=== PATIENT | female | born 1945 | race Caucasian/White ===

== ENCOUNTER 2017-07-04 16:13 | Emergency (ER) | payer MEDICARE, BC ==
[2017-07-04 17:37] VITALS: BP 151/38
--- NOTE | 2017-07-04 18:30 | UC ---
Throat Pain/Nasal Afshin HPI - HPI Summary HPI Summary: pt c/o cold symptoms since last week; however, she now has a sore throat. No cp , sob. - History of Current Complaint Chief Complaint: UCRespiratory Stated Complaint: SORE THROAT Time Seen by Provider: 07/04/17 18:22 Hx Obtained From: Patient ?: No Onset/Duration: Gradual Onset Severity: Moderate Pain Intensity: 6 Associated Signs & Symptoms: Positive: Other - cough, nasal congestion and sides or neck feel stiff. - Allergies/Home Medications Allergies/Adverse Reactions: Allergies Allergy/AdvReac Type Severity Reaction Status Date / Time amoxicillin Allergy Hives Verified 07/04/17 17:37 bupropion [From Wellbutrin] Allergy Hives Verified 07/04/17 17:40 buspirone [From BuSpar] Allergy Fatigue Verified 07/04/17 17:37 Cephalosporins Allergy See Comment Verified 07/04/17 17:37 clavulanic acid Allergy Hives Verified 07/04/17 17:37 [From Augmentin] doxepin Allergy Fatigue Verified 07/04/17 17:40 duloxetine [From Cymbalta] Allergy Fatigue Verified 07/04/17 17:40 hydrocodone Allergy Rash Verified 07/04/17 17:40 levofloxacin [From Levaquin] Allergy See Comment Verified 07/04/17 17:40 melatonin Allergy Fatigue Verified 07/04/17 17:40 MS Penicillins [PCN] Allergy Hives Verified 07/04/17 17:40 nitrofurantoin Allergy GI Upset Verified 07/04/17 17:40 [From Macrobid] oxycodone Allergy Rash Verified 07/04/17 17:40 Home Medications: Home Medications Atorvastatin* [Lipitor*] 20 mg PO 1700 07/04/17 [History Confirmed 07/04/17] Escitalopram Oxalate [Lexapro 20 mg] 20 mg PO DAILY 07/04/17 [History Confirmed 07/04/17] Verapamil HCl 40 mg PO 07/04/17 [History] PMH/Surg Hx/FS Hx/Imm Hx Endocrine History: Dyslipidemia Neurological History: Migraine Psychological History: Anxiety, Depression - Surgical History Surgical History: Yes Surgery Procedure, Year, and Place: t&a, d&c x3, hysterectomy, oopherectomy, choley, appy - Social History Occupation: Employed Part-time Alcohol Use: None Substance Use Type: None Smoking Status (MU): Never Smoked Tobacco Review of Systems Constitutional: Chills Skin: Negative Eyes: Negative ENT: Sore Throat, Sinus Congestion Respiratory: Cough Cardiovascular: Negative Gastrointestinal: Negative Genitourinary: Negative Motor: Negative Neurovascular: Negative Musculoskeletal: Myalgia Neurological: Headache Psychological: Negative Is Patient Immunocompromised?: No All Other Systems Reviewed And Are Negative: Yes Physical Exam Triage Information Reviewed: Yes Appearance: Well-Appearing Vital Signs: Initial Vital Signs Temp 98.8 F 07/04/17 17:26 Pulse 75 07/04/17 17:26 Resp 18 07/04/17 17:26 BP 151/38 07/04/17 17: Pulse Ox 100 07/04/17 17:26 Vital Signs Reviewed: Yes Eyes: Positive: Conjunctiva Clear ENT: Positive: Pharyngeal erythema, TMs normal, Uvula midline. Negative: Nasal congestion, Nasal drainage, Tonsillar swelling, Tonsillar exudate Neck: Positive: Supple, Nontender, No Lymphadenopathy. Negative: Nuchal Rigidity Respiratory: Positive: Lungs clear, Normal breath sounds, No respiratory distress Cardiovascular: Positive: RRR, No Murmur Abdomen Description: Positive: Nontender, No Organomegaly, Soft Bowel Sounds: Positive: Present Neurological: Positive: Alert Psychological: Positive: Age Appropriate Behavior Skin Exam: Normal Diagnostics - Laboratory Diagnostic Studies Completed/Ordered: + strep Throat Pain/Nasal Course/Dx - Course Course Of Treatment: + rapid strep, will tx with zithromax. pt has pcn/ cephalosporin allergies. she has taken zithromax on her current medications in past with no reactions/side effects. pt BP elevated during this visit. pt notes that this is not new for her. at times it is better. she will d/w her pcp on f/ u within the next week for a recheck. - Differential Dx/Diagnosis Provider Diagnoses: strep throat Discharge - Discharge Plan Condition: Stable Disposition: HOME Prescriptions: Azithromycin TAB* [Zithromax TAB (Z-JULIA) 250 mg #6 tabs] 2 tab PO .TODAY, THEN 1 DAILY #1 julia Patient Education Materials: Strep Throat (DC) Referrals: Latia Davis MD [Primary Care Provider] -
[2017-07-04] MEDS ORDERED: Azithromycin TAB* 250 MG PO ONE (18:34)
== END 2017-07-04 18:48 | disposition home or self-care (01) ==
LOC: UCCORT 16:13
DX: J02.0 Streptococcal pharyngitis (principal); E78.5 Hyperlipidemia, unspecified; F41.8 Other specified anxiety disorders
CPT/HCPCS: 87651; 99212; A9270-GY; G0463

== ENCOUNTER 2017-10-07 12:47 | Emergency (ER) | payer MEDICARE, BC ==
[2017-10-07 13:11] VITALS: BP 112/72
--- NOTE | 2017-10-07 13:36 | UC ---
Headache HPI - HPI Summary HPI Summary: P tc/o onset of migraine 3-4 days ago. Pt then reports that she took her B/P at pharmacy and it has been elevated over the last 3 days. Pt has history of migraines and used her verapamil last night with no improvement. Pt denies unilateral weakness, difficulty swallowing, vision changes, facial droop or worsening DAHL. - History Of Current Complaint Chief Complaint: UCHeadache Stated Complaint: HEAD ACHE,HIGH BLOOD PRESSURE Time Seen by Provider: 10/07/17 13:12 Hx Obtained From: Patient ?: No Onset/Duration: Gradual Onset, Lasting Days, Still Present Onset Of Symptoms: Gradual, Still Present Initially Headache Was: Moderate Currently Pain Is: Moderate Pain Intensity: 4 Timing: Constant Character: Dull, Pressure, Migraine Location of Headache: Frontal Aggravating Factor(s): Nothing Allevating Factor(s): Nothing Associated Signs And Symptoms: Positive: Dizziness, Sinus Pressure - Risk Factors SAH Risk Factors: Negative Meningitis Risk Factors: Negative SDH Risk Factors: Negative Temporal Arteritis Risk Factors: Female - Allergies/Home Medications Allergies/Adverse Reactions: Allergies Allergy/AdvReac Type Severity Reaction Status Date / Time amoxicillin Allergy Hives Verified 10/07/17 13:07 bupropion [From Wellbutrin] Allergy Hives Verified 10/07/17 13:07 buspirone [From BuSpar] Allergy Fatigue Verified 10/07/17 13:07 Cephalosporins Allergy See Comment Verified 10/07/17 13:07 clavulanic acid Allergy Hives Verified 10/07/17 13:07 [From Augmentin] doxepin Allergy Fatigue Verified 10/07/17 13:07 duloxetine [From Cymbalta] Allergy Fatigue Verified 10/07/17 13:07 hydrocodone Allergy Rash Verified 10/07/17 13:07 levofloxacin [From Levaquin] Allergy See Comment Verified 10/07/17 13:07 melatonin Allergy Fatigue Verified 10/07/17 13:07 MS Penicillins [PCN] Allergy Hives Verified 10/07/17 13:07 nitrofurantoin Allergy GI Upset Verified 10/07/17 13:07 [From Macrobid] oxycodone Allergy Rash Verified 10/07/17 13:07 Home Medications: Home Medications Omeprazole CAP* [Prilosec CAP* 20 MG] 20 mg PO DAILY 10/07/17 [History Confirmed 10/07/17] PMH/Surg Hx/FS Hx/Imm Hx Previously Healthy: Yes - Surgical History Surgical History: Yes Surgery Procedure, Year, and Place: t&a, d&c x3, hysterectomy, oopherectomy, choley, appy - Family History Known Family History: Positive: Cardiac Disease - Social History Occupation: Retired Lives: With Family Alcohol Use: None Substance Use Type: None Smoking Status (MU): Never Smoked Tobacco Have You Smoked in the Last Year: No Review of Systems Constitutional: Negative Skin: Negative Eyes: Negative ENT: Sinus Pain/Tenderness Respiratory: Negative Cardiovascular: Negative Gastrointestinal: Negative Genitourinary: Negative Motor: Negative Neurovascular: Negative Musculoskeletal: Negative Neurological: Headache Psychological: Negative Is Patient Immunocompromised?: No All Other Systems Reviewed And Are Negative: Yes Physical Exam Triage Information Reviewed: Yes Appearance: Well-Appearing Vital Signs: Initial Vital Signs Temp 98.2 F 10/07/17 13:05 Pulse 62 10/07/17 13:05 Resp 15 10/07/17 13:05 BP 112/72 10/07/17 13:05 Pulse Ox 99 10/07/17 13:05 Vital Signs Reviewed: Yes Eye Exam: Normal Eyes: Positive: Other: - PERRLA ENT Exam: Normal Dental Exam: Normal Neck exam: Normal Respiratory Exam: Normal Cardiovascular Exam: Normal Musculoskeletal Exam: Normal Neurological Exam: Normal Psychological Exam: Normal Skin Exam: Normal Headache Course/Dx - Differential Dx/Diagnosis Differential Diagnosis/HQI/PQRI: Migraine, Sinus Headache, Tension Headache Provider Diagnoses: Migraine DAHL Discharge - Sign-Out/Discharge Documenting (check all that apply): Discharge/Admit/Transfer - Discharge Plan Condition: Stable Disposition: HOME Patient Education Materials: Migraine Headache (ED) Referrals: Latia Davis MD [Primary Care Provider] - If Needed Additional Instructions: Please follow up with your PCP as needed. - Billing Disposition and Condition Condition: STABLE Disposition: HOME
== END 2017-10-07 13:37 | disposition home or self-care (01) ==
LOC: UCCORT 12:47
DX: G43.909 Migraine, unspecified, not intractable, without status migrainosus (principal); Z88.6 Allergy status to analgesic agent; Z88.0 Allergy status to penicillin; Z88.8 Allergy status to other drugs, medicaments and biological substances
CPT/HCPCS: 99211; G0463

== ENCOUNTER 2018-01-08 12:32 | Emergency (ER) | payer MEDICARE, BC ==
[2018-01-08 12:51] VITALS: BP 121/51
--- NOTE | 2018-01-08 13:14 | UC ---
Skin Complaint HPI - HPI Summary HPI Summary: The patient is a 72-year-old female with a 2-3 day history of pruritic upper back rash. She used a new detergent recently. She denies any pain. - History of Current Complaint Chief Complaint: UCSkin Time Seen by Provider: 01/08/18 13:01 Stated Complaint: SKIN CONCERN (BACK) Hx Obtained From: Patient Onset/Duration: Gradual Onset Skin Exposure Onset/Duration: Days Ago Timing: Constant Onset Severity: Mild Current Severity: Mild Pain Intensity: 0 Pain Scale Used: 0-10 Numeric Character: Pruritus, Redness Aggravating Factor(s): OTC Meds Alleviating Factor(s): Nothing Associated Signs & Symptoms: Positive: Rash - Allergy/Home Medications Allergies/Adverse Reactions: Allergies Allergy/AdvReac Type Severity Reaction Status Date / Time amoxicillin Allergy Hives Verified 10/07/17 13:07 bupropion [From Wellbutrin] Allergy Hives Verified 10/07/17 13:07 buspirone [From BuSpar] Allergy Fatigue Verified 10/07/17 13:07 Cephalosporins Allergy See Comment Verified 10/07/17 13:07 clavulanic acid Allergy Hives Verified 10/07/17 13:07 [From Augmentin] doxepin Allergy Fatigue Verified 10/07/17 13:07 duloxetine [From Cymbalta] Allergy Fatigue Verified 10/07/17 13:07 hydrocodone Allergy Rash Verified 10/07/17 13:07 levofloxacin [From Levaquin] Allergy See Comment Verified 10/07/17 13:07 melatonin Allergy Fatigue Verified 10/07/17 13:07 nitrofurantoin Allergy GI Upset Verified 10/07/17 13:07 [From Macrobid] oxycodone Allergy Rash Verified 10/07/17 13:07 Penicillins Allergy Hives Verified 01/08/18 12:50 Home Medications: Home Medications [place]-3 Fatty Acids/Fish Oil [[place] 3 1,000 mg Softgel] 1 each PO DAILY [History Confirmed 01/08/18] diphenhydrAMINE HCl [Benadryl Allergy] 25 mg PO DAILY 01/08/18 [History Confirmed 01/08/18] hydrOXYzine HCl [Hydroxyzine HCl] 25 mg PO DAILY PRN 01/08/18 [History Confirmed 01/08/18] Review of Systems Constitutional: Negative Skin: Rash Eyes: Negative ENT: Negative Respiratory: Negative Cardiovascular: Negative Gastrointestinal: Negative Genitourinary: Negative Motor: Negative Neurovascular: Negative Musculoskeletal: Negative Neurological: Negative Psychological: Negative Is Patient Immunocompromised?: No All Other Systems Reviewed And Are Negative: Yes PMH/Surg Hx/FS Hx/Imm Hx Previously Healthy: Yes Endocrine History: Dyslipidemia Cardiovascular History: Hypertension - Surgical History Surgical History: Yes Surgery Procedure, Year, and Place: t&a, d&c x3, hysterectomy, oopherectomy, choley, appy - Family History Known Family History: Positive: Cardiac Disease - Social History Alcohol Use: None Substance Use Type: None Smoking Status (MU): Never Smoked Tobacco Have You Smoked in the Last Year: No Physical Exam Triage Information Reviewed: Yes Appearance: Well-Appearing, No Pain Distress, Well-Nourished Vital Signs: Initial Vital Signs Temp 98.0 F 01/08/18 12:43 Pulse 52 01/08/18 12:43 Resp 14 01/08/18 12:43 BP 121/51 01/08/18 12:43 Pulse Ox 99 01/08/18 12:43 Vital Signs Reviewed: Yes Eyes: Positive: Conjunctiva Clear ENT: Negative: Hearing grossly normal, Nasal congestion, Nasal drainage, Trismus , Muffled voice, Dental tenderness Neck: Positive: Supple, Nontender, No Lymphadenopathy Respiratory: Positive: Lungs clear, Normal breath sounds, No respiratory distress, No accessory muscle use Cardiovascular: Positive: RRR, No Murmur Musculoskeletal: Positive: ROM Intact, No Edema Neurological: Positive: Alert Psychological Exam: Normal Skin Exam: Other - fine red macular/papular rash upper back Course/Dx - Diagnoses Provider Diagnoses: acute pruritic rash of uncertain cause Discharge - Sign-Out/Discharge Documenting (check all that apply): Patient Departure - Discharge Plan Condition: Stable Disposition: HOME Prescriptions: Triamcinolone 0.5% CREAM(NF) [Triamcinolone 0.5% CREAM*] 1 applic TOPICAL TID # 1 tube Patient Education Materials: Acute Rash (ED) Referrals: Latia Davis MD [Primary Care Provider] - If Needed Additional Instructions: sarna anti itch lotion - Billing Disposition and Condition Condition: STABLE Disposition: Home
== END 2018-01-08 13:19 | disposition home or self-care (01) ==
LOC: UCCORT 12:32
DX: L29.9 Pruritus, unspecified (principal); Z88.0 Allergy status to penicillin; Z88.8 Allergy status to other drugs, medicaments and biological substances; I10 Essential (primary) hypertension
CPT/HCPCS: 99212; G0463

== ENCOUNTER 2018-05-13 15:31 | Emergency (ER) | payer MEDICARE, BC ==
[2018-05-13 15:54] VITALS: BP 144/59
--- NOTE | 2018-05-13 17:05 | UC ---
Headache HPI - HPI Summary HPI Summary: HX COMPLEX MIGRAINES AND SEEING DR TEJADA, NEUROLOGY IN [place]. OVER THE PAST 3 WEEKS, PT HAS HAD A MIGRAINE. DESCRIBES A FRONTAL THROBBING HEADACHE WHICH IS TYPICAL FOR HER. THE NEUROLOGIST TX'ED HER WITH A WEANING STEROID WHICH HELP UNTIL SHE REACHED THE LAST DAY. SHE F/U WITH HER PCP WHO TX FOR POSSIBLE SINUSITIS WHICH DID NOT HELP. SHE HAS BEEN TAKING A SINGLE DOSE OF ZOMIG DAILY WHICH PROVIDES TRANSIENT RELIEF. SHE TOOK ONE SITE PROMOTION AGENT AND DAHL HAS IMPROVED BUT HAS NOT RESOLVED. SHE HAS NO LIGHT/NOISE SENSITIVITY, NO N/V, NO INJURY OR FEVER. THIS IS NOT AN ABRUPT OR WORST HEADACHE. LAST IMAGE WAS MRI IN SPRING 2017. IT WAS OK. - History Of Current Complaint Chief Complaint: UCHeadache Stated Complaint: MIGRAINE Time Seen by Provider: 05/13/18 16:58 Hx Obtained From: Patient Onset/Duration: Gradual Onset Pain Intensity: 6 Timing: Constant - Risk Factors Meningitis Risk Factors: Negative SDH Risk Factors: Negative - Allergies/Home Medications Allergies/Adverse Reactions: Allergies Allergy/AdvReac Type Severity Reaction Status Date / Time amoxicillin Allergy Hives Verified 05/13/18 15:56 bupropion [From Wellbutrin] Allergy Hives Verified 05/13/18 15:56 buspirone [From BuSpar] Allergy Fatigue Verified 05/13/18 15:56 Cephalosporins Allergy See Comment Verified 05/13/18 15:56 clavulanic acid Allergy Hives Verified 05/13/18 15:56 [From Augmentin] hydrocodone Allergy Rash Verified 05/13/18 15:56 levofloxacin [From Levaquin] Allergy See Comment Verified 05/13/18 15:56 oxycodone Allergy Rash Verified 05/13/18 15:56 Penicillins Allergy Hives Verified 05/13/18 15:56 doxepin AdvReac Fatigue Verified 05/13/18 15:56 duloxetine [From Cymbalta] AdvReac Fatigue Verified 05/13/18 15:56 melatonin AdvReac Fatigue Verified 05/13/18 15:56 nitrofurantoin AdvReac GI Upset Verified 05/13/18 15:56 [From Macrobid] Home Medications: Home Medications DOXYcycline CAP(*) [DOXYcycline 100MG CAP(*)] 100 mg PO BID 05/13/18 [History Confirmed 05/13/18] Erenumab-Aooe [Aimovig Autoinjector] 70 mg SQ MONTHLY 05/13/18 [History Confirmed 05/13/18] Ibuprofen TAB* [Motrin TAB* 800 MG] 800 mg PO Q6H PRN 05/13/18 [History Confirmed 05/13/18] ZOLMitriptan [Zomig] 5 mg PO ONCE PRN 05/13/18 [History Confirmed 05/13/18] PMH/Surg Hx/FS Hx/Imm Hx Endocrine History: Dyslipidemia GI/ History: Gastroesophageal Reflux Neurological History: Migraine Psychological History: Anxiety, Depression - Surgical History Surgical History: Yes Surgery Procedure, Year, and Place: t&a, d&c x3, hysterectomy, oopherectomy, choley, appy - Family History Known Family History: Positive: Cardiac Disease - Social History Lives: With Family Alcohol Use: None Substance Use Type: None Smoking Status (MU): Never Smoked Tobacco Have You Smoked in the Last Year: No - Immunization History Vaccination Up to Date: Yes Review of Systems All Other Systems Reviewed And Are Negative: Yes Constitutional: Positive: Negative Skin: Positive: Negative Eyes: Positive: Negative ENT: Positive: Negative Respiratory: Positive: Negative Cardiovascular: Positive: Negative Gastrointestinal: Positive: Negative Genitourinary: Positive: Negative Motor: Positive: Negative Neurovascular: Positive: Negative Musculoskeletal: Positive: Negative Neurological: Positive: Headache Psychological: Positive: Negative Is Patient Immunocompromised?: No Physical Exam Triage Information Reviewed: Yes Appearance: Well-Appearing Vital Signs: Initial Vital Signs Temp 97.7 F 05/13/18 15:49 Pulse 65 05/13/18 15:49 Resp 16 05/13/18 15:49 BP 144/59 05/13/18 15:49 Pulse Ox 100 05/13/18 15:49 Vital Signs Reviewed: Yes Eyes: Positive: Conjunctiva Clear, Other: - S/P CATARACT SURGERY ENT: Positive: Pharynx normal, TMs normal. Negative: Nasal congestion, Nasal drainage Neck: Positive: Supple, Nontender, No Lymphadenopathy, Other: - NO CAROTID BRUITS Respiratory: Positive: Lungs clear, Normal breath sounds Cardiovascular: Positive: RRR, No Murmur Abdomen Description: Positive: Nontender, No Organomegaly, Soft Bowel Sounds: Positive: Present Musculoskeletal: Positive: ROM Intact Neurological: Positive: Other: - A&OX3, CN 2-12 GROSSLY INTACT. 5/5 STRENGHT/ SENSATION/2+REFLEXES INTACTX4. NEGATIVE RHOMBERG AND PRONATOR DRIFT. STEADY GAIT. NO TEMPORAL CORDS/TENDERNESS. Psychological: Positive: Age Appropriate Behavior Skin Exam: Normal Skin: Negative: Rashes Re-Evaluation - Re-Evaluation First Eval Re-Evaluation Time: 18:05 Change: Improved - PT NOTES FEELING BETTER. Second Eval Re-Evaluation Time: 18:25 Change: Improved - HEADACHE HAS RESOLVED Headache Course/Dx - Differential Dx/Diagnosis Differential Diagnosis/HQI/PQRI: CVA, Epidural Hematoma, Subdural Hematoma, Meningitis, Migraine, Subarachnoid Hemorrhage, Temporal Arteritis, Tension Headache Provider Diagnosis: Migraine Discharge - Sign-Out/Discharge Documenting (check all that apply): Patient Departure All imaging exams completed and their final reports reviewed: No Studies - Discharge Plan Condition: Stable Disposition: HOME Patient Education Materials: Migraine Headache (ED) Referrals: Latia Davis MD [Primary Care Provider] - Additional Instructions: FOLLOW UP DR TEJADA, YOUR NEUROLOGIST SOON POSSIBLE. - Billing Disposition and Condition Condition: STABLE Disposition: Home - Attestation Statements Provider Attestation: Per institutional requirements, I have reviewed the chart, however, I was not consulted specifically or made aware of this patient by the midlevel provider. I did not personally evaluate, interact with , or disposition this patient.
[2018-05-13] MEDS ORDERED: NS 0.9% 1000 ML* 1,000 ML IV ONE (17:15)
[2018-05-13] MEDS ORDERED: Metoclopramide IV* 5 MG/ML 2 ML VIAL IV SLOW PU ONE (17:16)
[2018-05-13] MEDS ORDERED: diPHENhydraMINE IV* 50 MG/ML 1 ml VIAL (BENADRYL) IV ONE (17:19)
[2018-05-13] MEDS ORDERED: methylPREDNISolone 125 MG* 2 ML VIAL IV ONE (17:20)
== END 2018-05-13 18:34 | disposition home or self-care (01) ==
LOC: UCCORT 15:31
DX: G43.909 Migraine, unspecified, not intractable, without status migrainosus (principal); Z88.0 Allergy status to penicillin; Z88.8 Allergy status to other drugs, medicaments and biological substances; Z88.1 Allergy status to other antibiotic agents; Z88.5 Allergy status to narcotic agent
CPT/HCPCS: 96360; 96374; 96375; 99212; G0463; J1200; J2765; J2930

== ENCOUNTER 2018-12-06 14:45 | Emergency (ER) | payer MEDICARE, BC ==
--- OUTSIDE RECORDS SUMMARY | 2018-12-06 14:55 | XMS REPORT | Continuity of Care Document ---
:1945 External Reference #:[id number] Author Name Leatha Adkins Care Team Providers Name Role Phone Latia Davis MD Care Team Information Adult High School Instructor Unavailable Latia Davis MD Primary Care Physician Unavailable Payers Date Identification Numbers Payment Provider Subscriber Policy Number: [id number] Medicare Lia Waggoner PayID: [id number] [address] [place] [address] Policy Number: [id number] [facility] Lia Waggoner PayID: [id number] [address] [address] [place] [address] Family History Date Family Member(s) Observation Comments : (age 71 Years) Father due to Heart Attack : (age 60 Years) Mother due to Uterine Cancer Social History Type Date Description Comments Sex Unknown Tobacco Use Start: Unknown Never Smoked Cigarettes ETOH Use Never used alcohol Recreational Drug Use Never Used Drugs Allergies, Adverse Reactions, Alerts Active Allergies Reaction Severity Comments Date Amoxicillin 2018 Augmentin 2018 Cephalosporins 2018 Doxepin 2018 Levaquin 2018 Oxycodone 2018 Penicillin 2018 Medications Active Medications SIG Qnty Indications Ordering Provider Date Singulair 1 by mouth every 30tabs Antoine Shirley, 10/20/2018 10mg Tablets day M.D. Fluticasone 2 sprays both 32gm Antoine Shirley, 2018 Propionate nostrils every M.D. 50mcg/Act day Suspension Lipitor 1 by mouth every Unknown 40mg Tablets day Omeprazole 1 by mouth every Unknown 20mg day Capsules DR Lexapro 1 by mouth every Unknown 20mg Tablets day Premarin 1 by mouth every Unknown 0.625mg day Tablets Verapamil HCL 1 by mouth every Unknown 40mg day Tablets Zomig Unknown 2.5mg Tablets History Medications Azithromycin 1 by mouth every 5tabs Antoine Shirley, 10/06/2018 - 500mg day M.D. 11/15/2018 Tablets Fluocinolone Acetonide 5 drops as needed 1units Antoine Shirley, 2018 - Ear Drops in the affected M.D. 10/05/2018 0.01% Oil ear twice a day. prn Vital Signs Date Vital Result Comment 11/16/2018 1:22pm Weight 113.00 lb Height 61 inches 5'1" BMI (Body Mass Index) 21.3 kg/m2 BP Systolic 118 mmHg BP Diastolic 75 mmHg Heart Rate 67 /min O2 % BldC Oximetry 96 % Body Temperature 97.0 F Pain Level 0 10/06/2018 1:12pm Weight 113.00 lb Height 61 inches 5'1" BMI (Body Mass Index) 21.3 kg/m2 BP Systolic 124 mmHg BP Diastolic 81 mmHg Heart Rate 66 /min O2 % BldC Oximetry 97 % Body Temperature 97.1 F Pain Level 0 2018 9:54am Weight 111.00 lb Height 61 inches 5'1" BMI (Body Mass Index) 21.0 kg/m2 BP Systolic 123 mmHg BP Diastolic 64 mmHg Heart Rate 71 /min O2 % BldC Oximetry 96 % Body Temperature 98.1 F Pain Level 0 Procedures Date Code Description Status 10/06/2018 15974 Cat Scan Maxillofacial W/O Contrast,computed tomography Completed 10/06/2018 68526 Cat Scan Maxillofacial W/O Contrast,computed tomography Completed 10/06/2018 90755 Fiberoptic Laryngoscopy,Diag. Completed 2018 29235 Laryngoscopy W/ Stroboscopy Completed Encounters Type Date Location Provider Dx Diagnosis Office Visit 10/06/2018 Main Office Antoine Shirley M.D. K21.9 Gastro- esophageal 1:00p reflux disease without esophagitis L21.9 Seborrheic dermatitis, unspecified J32.9 Chronic sinusitis, unspecified Office Visit 2018 10:00a Main Office Antoine Shirley K21.[place] [facility]- esophageal reflux Denita.DSteve disease without esophagitis R49.0 Dysphonia L21.9 Seborrheic dermatitis, unspecified J32.9 Chronic sinusitis, unspecified
--- OUTSIDE RECORDS SUMMARY | 2018-12-06 14:55 | XMS REPORT | Continuity of Care Document ---
:1945 External Reference #:[id number] Author Name Juan R Wang PA Address [address] [facility], [address] [place] [address] Care Team Providers Name Role Phone Latia Davis MD Care Team Information Sales And Marketing Manager Unavailable Latia Davis MD Primary Care Physician Unavailable Payers Date Identification Numbers Payment Provider Subscriber Policy Number: [id number] Medicare Lia Waggoner PayID: [id number] [address] [place] [address] Policy Number: [id number] David Waggoner PayID: [id number] [place] [address] Expires: 2016 Policy Number: [id number] [facility] Lia Waggoner Group Number: [id number] Expires: 2016 Policy Number: [id number] David Waggoner Group Number: [id number] Box Group Name: [place] [id number] PayID: [id number] Effective: 2005 Policy Number: [id number] [facility] Lia Waggoner Expires: 2016 Group Number: [id number] [facility] PayID: [id number] [place] [address] Problems Active Problems Provider Date Enthesopathy Onset: 05/15/2003 Cervical spondylosis without myelopathy Onset: 05/15/2003 Nocturia Saeed Valle M.D. Onset: 02/15/2017 Dribbling of urine Saeed Valle M.D. Onset: 02/15/2017 Increased frequency of urination Saeed Valle M.D. Onset: 04/26/2017 Family History Date Family Member(s) Observation Comments Father due to CO () Mother due to Uterine Cancer () Social History Type Date Description Comments Sex Unknown Lives With Occupation Retired Occupation Teacher Subsitute ETOH Use Rarely consumes alcohol Tobacco Use Start: Unknown Patient denies history of smoking Recreational Drug Use Denies Drug Use Smoking Status Reviewed: 11/11/18 Patient denies history of smoking Allergies, Adverse Reactions, Alerts Active Allergies Reaction Severity Comments Date Penicillins Hives Moderate 02/15/2017 Amoxicillin Hives 03/15/2017 Augmentin Hives 03/15/2017 Buspar Fatigue 03/15/2017 Cephalosporins 03/15/2017 Cymbalta makes pt tired 03/15/2017 Doxepin malaise 03/15/2017 Acetaminophen / Hydrocodone Rash 03/15/2017 Levaquin 03/15/2017 Macrobid 03/15/2017 Melatonin 03/15/2017 Oxycodone 03/15/2017 Wellbutrin 03/15/2017 Medications Active Medications SIG Qnty Indications Ordering Provider Date Escitalopram Oxalate Take One Tablet Unknown 20mg By Mouth Every Tablets Day Premarin Once a day Amber Mann MD 0.3mg Tablets Aimovig Pt takes once a Unknown 70mg/ml Solution month Auto-Inject Lipitor 1 by mouth Unknown 10mg Tablets every day Cyclobenzaprine HCL 1 tablet by Latia Davis MD 10mg mouth qday Tablets History Medications Botox Unknown Dose Saeed Valle, 04/26/2017 - 100Unit Solution M.D. 06/22/2018 Rec Trospium Chloride ER 1 tab by mouth 30caps R35.1 Saeed Valle, 2016 - every day every M.D. 04/06/2017 60mg Caps ER 24HR morning Myrbetriq 1 by mouth every 30tabs R35.1 Saeed Valle, 02/15/2017 - 50mg Tablets day M.D. 03/15/2017 ER 24HR Venlafaxine HCL 1 tab po qdLatia Patel MD - 25mg 04/20/2017 Tablets Verapamil HCL 1 tab po bid Unknown - 40mg Unknown Tablets Atorvastatin Calcium 1 tab po QdLatia Patel MD - 03/02/2018 40mg Tablets Premarin Every four days Amber Mann MD - 0.3mg Tablets 04/06/2017 Prednisone Unknown - 10mg Tablets 04/06/2017 Allergy oNCE A Day Unknown - 10mg Tablets 09/14/2018 [place] 3 1 by mouth every Unknown - 2000mg Capsules day 09/14/2018 Vital Signs Date Vital Result Comment 12/02/2018 12:56pm BP Systolic 155 mmHg BP Diastolic 78 mmHg Body Temperature 97.0 F Heart Rate 57 /min Respiratory Rate 16 /min Height 61 inches 5'1" [place] body weight in kilograms 48 kg O2 % BldC Oximetry 98 % Pain Level 0 11/03/2018 2:14pm BP Systolic 141 mmHg BP Diastolic 76 mmHg Body Temperature 98.8 F Heart Rate 62 /min Respiratory Rate 16 /min Height 61 inches 5'1" Weight 114.00 lb BMI (Body Mass Index) 21.5 kg/m2 BSA (Body Surface Area) 1.49 m2 [place] body weight in kilograms 48 kg O2 % BldC Oximetry 99 % Pain Level 0 10/19/2018 1:13pm BP Systolic Sitting Right Arm 122 mmHg BP Diastolic Sitting Right Arm 55 mmHg Body Temperature 97.9 F Heart Rate 57 /min Respiratory Rate 16 /min Height 61 inches 5'1" [place] body weight in kilograms 48 kg O2 % BldC Oximetry 96 % 10/05/2018 9:37am BP Systolic 119 mmHg BP Diastolic 74 mmHg Body Temperature 97.3 F Heart Rate 64 /min Respiratory Rate 15 /min Height 61 inches 5'1" [place] body weight in kilograms 48 kg O2 % BldC Oximetry 96 % Pain Level 0 09/14/2018 9:03am BP Systolic 100 mmHg BP Diastolic 49 mmHg Body Temperature 98.0 F Heart Rate 67 /min Respiratory Rate 16 /min Height 61 inches 5'1" Weight 115.00 lb BMI (Body Mass Index) 21.7 kg/m2 BSA (Body Surface Area) 1.49 m2 [place] body weight in kilograms 48 kg O2 % BldC Oximetry 96 % Pain Level 0 09/02/2018 1:05pm BP Systolic 149 mmHg BP Diastolic 84 mmHg Body Temperature 96.6 F Heart Rate 61 /min Respiratory Rate 17 /min Height 61 inches 5'1" Weight 115.00 lb BMI (Body Mass Index) 21.7 kg/m2 BSA (Body Surface Area) 1.49 m2 [place] body weight in kilograms 48 kg O2 % BldC Oximetry 98 % Pain Level 0 07/27/2018 9:24am BP Systolic 123 mmHg BP Diastolic 73 mmHg Body Temperature 96.2 F Heart Rate 61 /min Respiratory Rate 18 /min O2 % BldC Oximetry 98 % Pain Level 0 06/22/2018 9:37am BP Systolic 112 mmHg BP Diastolic 70 mmHg Body Temperature 97.7 F Heart Rate 73 /min Respiratory Rate 16 /min O2 % BldC Oximetry 97 % Pain Level 0 03/30/2018 12:14pm BP Systolic 162 mmHg BP Diastolic 78 mmHg Body Temperature 97.7 F Heart Rate 66 /min Respiratory Rate 16 /min O2 % BldC Oximetry 96 % Pain Level 0 03/02/2018 9:09am BP Systolic 116 mmHg BP Diastolic 68 mmHg Body Temperature 96.9 F Tympanic Heart Rate 69 /min Respiratory Rate 15 /min Height 61 inches 5'1" [place] body weight in kilograms 48 kg O2 % BldC Oximetry 99 % Pain Level 0 01/27/2018 1:14pm BP Systolic 134 mmHg BP Diastolic 82 mmHg Body Temperature 97.8 F Heart Rate 64 /min Respiratory Rate 16 /min Height 61 inches 5'1" [place] body weight in kilograms 48 kg O2 % BldC Oximetry 96 % Pain Level 0 01/03/2018 1:19pm BP Systolic 114 mmHg BP Diastolic 61 mmHg Body Temperature 97.9 F Heart Rate 62 /min Respiratory Rate 16 /min Height 61 inches 5'1" [place] body weight in kilograms 48 kg O2 % BldC Oximetry 95 % Pain Level 0 11/30/2017 1:12pm BP Systolic 143 mmHg BP Diastolic 74 mmHg Body Temperature 97.0 F Heart Rate 64 /min Respiratory Rate 16 /min Height 61 inches 5'1" [place] body weight in kilograms 48 kg O2 % BldC Oximetry 97 % Pain Level 0 11/02/2017 1:10pm BP Systolic 135 mmHg BP Diastolic 77 mmHg Body Temperature 97.9 F Heart Rate 65 /min Respiratory Rate 16 /min Height 61 inches 5'1" [place] body weight in kilograms 48 kg O2 % BldC Oximetry 98 % Pain Level 0 10/05/2017 1:04pm BP Systolic 142 mmHg BP Diastolic 76 mmHg Body Temperature 97.7 F Heart Rate 63 /min Respiratory Rate 16 /min Height 61 inches 5'1" [place] body weight in kilograms 48 kg O2 % BldC Oximetry 99 % Pain Level 0 09/06/2017 1:08pm BP Systolic 129 mmHg BP Diastolic 86 mmHg Body Temperature 97.0 F Heart Rate 67 /min Respiratory Rate 16 /min O2 % BldC Oximetry 98 % Pain Level 0 07/26/2017 1:11pm BP Systolic 121 mmHg BP Diastolic 56 mmHg Body Temperature 97.4 F Heart Rate 70 /min Respiratory Rate 16 /min O2 % BldC Oximetry 96 % Pain Level 0 06/24/2017 1:06pm BP Systolic 128 mmHg BP Diastolic 60 mmHg Body Temperature 96.9 F Heart Rate 56 /min Respiratory Rate 16 /min Height 61 inches 5'1" [place] body weight in kilograms 48 kg O2 % BldC Oximetry 96 % Pain Level 0 06/17/2017 1:01pm BP Systolic 159 mmHg BP Diastolic 83 mmHg Body Temperature 97.0 F Heart Rate 65 /min Respiratory Rate 16 /min Height 61 inches 5'1" [place] body weight in kilograms 48 kg O2 % BldC Oximetry 95 % Pain Level 0 06/10/2017 10:50am BP Systolic 146 mmHg BP Diastolic 81 mmHg Body Temperature 97.2 F Heart Rate 67 /min Respiratory Rate 18 /min Height 61 inches 5'1" [place] body weight in kilograms 48 kg O2 % BldC Oximetry 98 % Pain Level 0 05/25/2017 1:01pm BP Systolic 131 mmHg BP Diastolic 86 mmHg Body Temperature 98.0 F 36.7C Heart Rate 70 /min Respiratory Rate 16 /min O2 % BldC Oximetry 95 % Pain Level 0 05/19/2017 1:30pm BP Systolic 134 mmHg BP Diastolic 82 mmHg 05/19/2017 12:55pm BP Systolic 160 mmHg BP Diastolic 61 mmHg Body Temperature 96.9 F Heart Rate 64 /min O2 % BldC Oximetry 99 % Pain Level 0 05/10/2017 1:07pm BP Systolic 158 mmHg BP Diastolic 84 mmHg Body Temperature 96.9 F Heart Rate 58 /min Respiratory Rate 16 /min O2 % BldC Oximetry 98 % Pain Level 0 05/04/2017 12:58pm BP Systolic 151 mmHg BP Diastolic 80 mmHg Body Temperature 96.9 F Heart Rate 71 /min Respiratory Rate 16 /min Height 61 inches 5'1" [place] body weight in kilograms 48 kg O2 % BldC Oximetry 98 % Pain Level 0 04/26/2017 9:33am BP Systolic 148 mmHg BP Diastolic 72 mmHg Body Temperature 96.9 F Heart Rate 67 /min Respiratory Rate 15 /min Height 61 inches 5'1" [place] body weight in kilograms 48 kg O2 % BldC Oximetry 98 % Pain Level 0 04/20/2017 1:03pm BP Systolic 133 mmHg BP Diastolic 58 mmHg Body Temperature 97.9 F 36.6 C Heart Rate 63 /min Respiratory Rate 16 /min Height 61 inches 5'1" [place] body weight in kilograms 48 kg O2 % BldC Oximetry 97 % Pain Level 0 04/06/2017 2:20pm BP Systolic 147 mmHg BP Diastolic 63 mmHg Body Temperature 97.3 F Heart Rate 71 /min Height 61 inches 5'1" [place] body weight in kilograms 48 kg O2 % BldC Oximetry 99 % 03/15/2017 9:23am BP Systolic 143 mmHg BP Diastolic 70 mmHg Body Temperature 97.6 F 36.5 C Heart Rate 82 /min Respiratory Rate 16 /min Height 61 inches 5'1" Weight 116.38 lb BMI (Body Mass Index) 22.0 kg/m2 BSA (Body Surface Area) 1.50 m2 [place] body weight in kilograms 48 kg O2 % BldC Oximetry 94 % Pain Level 0 02/15/2017 8:57am BP Systolic 145 mmHg BP Diastolic 84 mmHg Body Temperature 97.8 F 36.6 C Heart Rate 85 /min Respiratory Rate 16 /min Height 61 inches 5'1" Weight 115.25 lb BMI (Body Mass Index) 21.8 kg/m2 BSA (Body Surface Area) 1.49 m2 [place] body weight in kilograms 48 kg O2 % BldC Oximetry 97 % Pain Level 0 Results Test Date Facility Test Result H/L Range Note Urine Dipstick 09/02/2018 [facility] Ua Color yellow Yellow Ua Clarity clear Clear Ua Leuko negative Negative Ua Nitrite negative Negative Ua Urobilinogen 0.2 0.2 - 1.0 E.U./dL Ua Protein negative Negative Ua PH 6.0 Low 6.5-7.5 Ua Blood negative Negative Ua Specific [place] 1.010 1.010-1.030 Ua Ketones negative Negative Ua Bilirubin negative Negative Ua Glucose negative Negative Ua RFX Micro & Culture 09/02/2018 [facility] Urine Color YELLOW Yellow [address] [place] [address] [phone] Urine Clarity SL CLOUDY Clear Urine Glucose - Dipstick NEGATIVE mg/dL Negative Urine Bilirubin - Dipstick NEGATIVE Negative Urine Ketone NEGATIVE mg/dL Negative Urine Specific [place] <=1.005 Low 1.010-1.030 Urine Blood NEGATIVE Negative Urine PH 5.5 Low 6.5-7.5 Urine Protein - Dipstick NEGATIVE mg/dL Negative Urine Urobilinogen - Dipstick 0.2 E.U./dL Normal 0.2-1.0 Urine Nitrite - Dipstick NEGATIVE Negative Urine Leuk Esterase NEGATIVE Negative Ua RFX Micro & Culture 01/03/2018 [facility] Urine Color YELLOW Yellow [address] [place] [address] [phone] Urine Clarity CLEAR Clear Urine Glucose - Dipstick NEGATIVE mg/dL Negative Urine Bilirubin - Dipstick NEGATIVE Negative Urine Ketone NEGATIVE mg/dL Negative Urine Specific [place] 1.020 Normal 1.010-1.030 Urine Blood NEGATIVE Negative Urine PH 5.5 Low 6.5-7.5 Urine Protein - Dipstick NEGATIVE mg/dL Negative Urine Urobilinogen - Dipstick 0.2 E.U./dL Normal 0.2-1.0 Urine Nitrite - Dipstick NEGATIVE Negative Urine Leuk Esterase NEGATIVE Negative 1 N390 Procedures Date Code Description Status 11/03/2018 77137 Posterior Tibial Neurostimulation, Percutaneous Needle Completed Electrode 10/19/2018 83538 Posterior Tibial Neurostimulation, Percutaneous Needle Completed Electrode 10/05/2018 16633 Posterior Tibial Neurostimulation, Percutaneous Needle Completed Electrode 09/14/2018 97009 Posterior Tibial Neurostimulation, Percutaneous Needle Completed Electrode 09/02/2018 63289 Posterior Tibial Neurostimulation, Percutaneous Needle Completed Electrode 07/27/2018 95933 Posterior Tibial Neurostimulation, Percutaneous Needle Completed Electrode 06/22/2018 10509 Posterior Tibial Neurostimulation, Percutaneous Needle Completed Electrode 03/30/2018 21545 Posterior Tibial Neurostimulation, Percutaneous Needle Completed Electrode 03/02/2018 30685 Posterior Tibial Neurostimulation, Percutaneous Needle Completed Electrode 01/27/2018 64389 Posterior Tibial Neurostimulation, Percutaneous Needle Completed Electrode 01/03/2018 02461 Posterior Tibial Neurostimulation, Percutaneous Needle Completed Electrode 11/30/2017 05406 Posterior Tibial Neurostimulation, Percutaneous Needle Completed Electrode 11/02/2017 78930 Posterior Tibial Neurostimulation, Percutaneous Needle Completed Electrode 10/05/2017 41393 Posterior Tibial Neurostimulation, Percutaneous Needle Completed Electrode 09/06/2017 95759 Posterior Tibial Neurostimulation, Percutaneous Needle Completed Electrode 07/26/2017 50941 Posterior Tibial Neurostimulation, Percutaneous Needle Completed Electrode 06/24/2017 09740 Posterior Tibial Neurostimulation, Percutaneous Needle Completed Electrode 06/17/2017 80636 Posterior Tibial Neurostimulation, Percutaneous Needle Completed Electrode 06/10/2017 19182 Posterior Tibial Neurostimulation, Percutaneous Needle Completed Electrode 06/03/2017 80177 Posterior Tibial Neurostimulation, Percutaneous Needle Completed Electrode 05/25/2017 25478 Posterior Tibial Neurostimulation, Percutaneous Needle Completed Electrode 05/19/2017 95685 Posterior Tibial Neurostimulation, Percutaneous Needle Completed Electrode 05/10/2017 76473 Posterior Tibial Neurostimulation, Percutaneous Needle Completed Electrode 05/04/2017 99673 Posterior Tibial Neurostimulation, Percutaneous Needle Completed Electrode 04/20/2017 20196 Posterior Tibial Neurostimulation, Percutaneous Needle Completed Electrode 04/12/2017 23189 Posterior Tibial Neurostimulation, Percutaneous Needle Completed Electrode 04/06/2017 01718 Posterior Tibial Neurostimulation, Percutaneous Needle Completed Electrode 02/15/2017 10166 Measurement Post Voiding Residual Urine By Completed Ultrasound,Non-Imaging 01/08/1994 33566 Cholecystectomy W. Cholaniography Completed Encounters Type Date Location Provider Dx Diagnosis Office Visit 10/19/2018 1:15p Urology Juan R Wang PA R35.1 Nocturia R35.0 Frequency of micturition Office Visit 09/06/2017 1:00p Urology Saeed Valle M.D. R35.1 Nocturia R35.0 Frequency of micturition Office Visit 07/26/2017 1:15p Urology Saeed Valle M.D. R35.1 Nocturia R35.0 Frequency of micturition Office Visit 06/24/2017 1:15p Urology Saeed Valle, R35.0 Frequency of M.D. micturition R35.1 Nocturia Office Visit 05/25/2017 1:00p Urology Saeed Valle R35.0 Frequency of M.D. micturition R35.1 Nocturia Office Visit 04/26/2017 9:30a Urology Saeed Valle R35.0 Frequency of M.D. micturition R35.1 Nocturia Office Visit 04/20/2017 1:00p Urology Saeed Valle M.D. R35.1 Nocturia Office Visit 03/15/2017 9:30a Urology Saeed Valle M.D. R35.1 Nocturia Office Visit 02/15/2017 9:00a UrologSaeed Lara M.D. 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 Reviewed pelvic floor relaxation and Kegel exercises. Call for his reviewed.R35.0 Frequency of micturition
[2018-12-06 15:00] VITALS: BP 138/64
--- NOTE | 2018-12-06 15:15 | UC ---
Skin Complaint HPI - HPI Summary HPI Summary: 73-year-old female comes in with chief complaint of a rash on her face. Started couple days ago. It does itch some. The rashes on the left side of her face, across the cheek and goes up onto the bridge of her nose. No drainage from it. No fevers feels well otherwise. She has tried some over-the- counter medications which don't seem to be helping. Denies any pain. - History of Current Complaint Chief Complaint: UCSkin Time Seen by Provider: 12/06/18 14:55 Stated Complaint: RASH ON FACE Pain Intensity: 0 - Allergy/Home Medications Allergies/Adverse Reactions: Allergies Allergy/AdvReac Type Severity Reaction Status Date / Time amoxicillin Allergy Hives Verified 05/13/18 15:56 bupropion [From Wellbutrin] Allergy Hives Verified 05/13/18 15:56 buspirone [From BuSpar] Allergy Fatigue Verified 05/13/18 15:56 Cephalosporins Allergy See Comment Verified 05/13/18 15:56 clavulanic acid Allergy Hives Verified 05/13/18 15:56 [From Augmentin] hydrocodone Allergy Rash Verified 05/13/18 15:56 levofloxacin [From Levaquin] Allergy See Comment Verified 05/13/18 15:56 oxycodone Allergy Rash Verified 05/13/18 15:56 Penicillins Allergy Hives Verified 05/13/18 15:56 doxepin AdvReac Fatigue Verified 05/13/18 15:56 duloxetine [From Cymbalta] AdvReac Fatigue Verified 05/13/18 15:56 melatonin AdvReac Fatigue Verified 05/13/18 15:56 nitrofurantoin AdvReac GI Upset Verified 05/13/18 15:56 [From Macrobid] Home Medications: Home Medications Cyclobenzaprine TAB* [Flexeril 10 MG TAB*] 10 mg PO DAILY PRN 12/06/18 [History Confirmed 12/06/18] Ranitidine HCl (Nf) [Zantac] 75 mg PO BID 12/06/18 [History Confirmed 12/06/18] PMH/Surg Hx/FS Hx/Imm Hx Previously Healthy: Yes Endocrine History: Dyslipidemia - Surgical History Surgical History: Yes Surgery Procedure, Year, and Place: t&a, d&c x3, hysterectomy, oopherectomy, choley, appy - Family History Known Family History: Positive: Cardiac Disease - Social History Alcohol Use: None Substance Use Type: None Smoking Status (MU): Never Smoked Tobacco Have You Smoked in the Last Year: No - Immunization History Vaccination Up to Date: Yes Review of Systems All Other Systems Reviewed And Are Negative: Yes Constitutional: Positive: Negative Skin: Positive: Other - see hpi Eyes: Positive: Negative. Negative: Drainage, Eye Redness, Photophobia ENT: Positive: Negative Respiratory: Positive: Negative Cardiovascular: Positive: Negative Gastrointestinal: Positive: Negative Motor: Positive: Negative Neurovascular: Positive: Negative Musculoskeletal: Positive: Negative Neurological: Positive: Negative Psychological: Positive: Negative Is Patient Immunocompromised?: No Physical Exam Triage Information Reviewed: Yes Appearance: Well-Appearing, No Pain Distress, Well-Nourished Vital Signs: Initial Vital Signs Temp 98.3 F 12/06/18 14:55 Pulse 66 12/06/18 14:55 Resp 18 12/06/18 14:55 BP 138/64 12/06/18 14:55 Pulse Ox 98 12/06/18 14:55 Vital Signs Reviewed: Yes Eye Exam: Normal Eyes: Positive: Conjunctiva Clear, Other: - PERRLA/EOMI. Negative: Conjunctiva Inflamed, Discharge ENT: Positive: TMs normal Neck: Positive: Supple Respiratory: Positive: Lungs clear, Normal breath sounds, No respiratory distress Cardiovascular: Positive: RRR Musculoskeletal Exam: Normal Musculoskeletal: Positive: Strength Intact, ROM Intact Neurological Exam: Normal Neurological: Positive: Alert, Muscle Tone Normal Psychological Exam: Normal Psychological: Positive: Age Appropriate Behavior Skin: Positive: Other - The patient has a rash on the left side of her face. There is scattered 5 mm to 1 cm flat erythematous areas starting in the left cheek just anterior to the ear and then underneath the left eye and onto the bridge of the nose. There are 2 lesions just to the right of midline on the nose. There are no lesions on the right side. There is no eye drainage no eye redness no eye injection. Course/Dx - Course Course Of Treatment: The exact cause of the rash is undetermined. He does not have the typical appearance of shingles however since shingles on the face could cause further problems with her treated with valacyclovir. No eye symptoms at this time. I recommended following up with her program advocate further evaluation of her eye. It is not shingles patient will continue to use topical hydrocortisone and Benadryl. If worsen patient needs to get reevaluated. - Diagnoses Provider Diagnosis: Rash of face Discharge - Sign-Out/Discharge Documenting (check all that apply): Patient Departure All imaging exams completed and their final reports reviewed: No Studies - Discharge Plan Condition: Stable Disposition: HOME Prescriptions: Valacyclovir HCl [Valacyclovir] 1 gm PO TID #21 tab Patient Education Materials: Shingles (ED), Acute Rash (ED) Referrals: Latia Davis MD [Primary Care Provider] - [facility] [Provider Group] Additional Instructions: FOLLOW UP WITH YOUR DOCTOR IF NOT COMPLETELY IMPROVED. FOLLOW UP WITH OPHTHALMOLOGY FOR ANY EYE PAIN OR IRRITATION. GET REEVALUATED SOONER IF WORSE OR ANY QUESTIONS OR CONCERNS. - Billing Disposition and Condition Condition: STABLE Disposition: Home
== END 2018-12-06 15:23 | disposition home or self-care (01) ==
LOC: UCCORT 14:45
DX: R21 Rash and other nonspecific skin eruption (principal); Z88.0 Allergy status to penicillin
CPT/HCPCS: 99212; G0463